=== PATIENT | female | born 1950 | race Caucasian/White ===

== ENCOUNTER 2017-12-20 20:03 | Emergency (ER) | payer MEDICARE, BC ==
[~2017-12-20] VITALS: Ht 152.4 cm; Wt 81.8 kg
[~2017-12-20 20:03] MED LIST: ASPI-825 PO; GLYB5TAB8 PO; METF-961 PO; METO25 PO; SIMV20TA6 PO
[2017-12-20 20:29] LABS: GLUCOSE,POINT OF CARE 370 MG/DL (70-110)
[2017-12-20] MEDS ORDERED: ATOR40TA28 PO (20:29)
[2017-12-20] MEDS ORDERED: CLOP75 PO (20:29)
[2017-12-20] MEDS ORDERED: METF-960 PO (20:29)
[2017-12-20] MEDS ORDERED: FURO20 PO (20:29)
[2017-12-20] MEDS ORDERED: OMEP20 PO (20:29)
[2017-12-20] MEDS ORDERED: DSS100 PO (20:29)
[2017-12-21 00:34] LABS: GLUCOSE,POINT OF CARE 357 MG/DL (70-110)
[2017-12-21 01:10] VITALS: BP 149/80
== END 2017-12-21 01:48 | disposition home or self-care (01) ==
LOC: EMS 20:04
DX: S93.601A Unspecified sprain of right foot, initial encounter (principal); S73.101A Unspecified sprain of right hip, initial encounter; I11.9 Hypertensive heart disease without heart failure; I25.10 Atherosclerotic heart disease of native coronary artery without angina pectoris; E11.9 Type 2 diabetes mellitus without complications; E78.00 Pure hypercholesterolemia, unspecified; Z86.73 Personal history of transient ischemic attack (TIA), and cerebral infarction without residual deficits; Z79.84 Long term (current) use of oral hypoglycemic drugs; Z79.01 Long term (current) use of anticoagulants; Z79.899 Other long term (current) drug therapy; W23.0XXA Caught, crushed, jammed, or pinched between moving objects, initial encounter; Y93.89 Activity, other specified; Y92.89 Other specified places as the place of occurrence of the external cause; Y99.8 Other external cause status
CPT/HCPCS: 29540; 73502; 99284